=== PATIENT | female | born 1975 | race Caucasian/White ===

== ENCOUNTER 2016-10-02 00:30 | Emergency (ER) | payer OTHER ==
[2016-10-02 00:40] VITALS: BP 116/70
[2016-10-02] MEDS ORDERED: Sodium Chloride 0.9% 1000 ML 1,000 ML IV STA (00:48)
[2016-10-02] MEDS ORDERED: DECADRON 10MG INJ. IV ONE (00:49)
[2016-10-02] MEDS ORDERED: Unasyn 3GM / NaCl 100ML 100 ML IV ONE (00:49)
[2016-10-02] MEDS ORDERED: DECADRON 10MG INJ. ONE (00:59)
[2016-10-02] MEDS ORDERED: TORAdol 30 mg Injection ONE (00:59)
[2016-10-02] MEDS ORDERED: Sodium Chloride 0.9% 1000 ML 1,000 ML ONE (00:59)
[2016-10-02] MEDS ORDERED: Unasyn 3GM / NaCl 100ML 100 ML ONE (00:59)
[2016-10-02] MEDS ORDERED: TORAdol 30 mg Injection IV ONE (01:00)
--- NOTE | 2016-10-02 01:00 | ERPHSYRPT ---
- History of Present Illness Time Seen by Provider: 10/02/16 00:35 Source: patient Exam Limitations: clinical condition Patient Subjective Stated Complaint: states that she has had a sore throat for 3 days - intermittent cough: non-productive Triage Nursing Assessment: PAambulatory to treatment area - steady gait - moves all extremities with equal strength. alert/oriented - pleasant affect. skin flushed/hot/dry - no rash/injury. resps easy - loose cough noted. large swelling of tonsils with exudate Physician History: PATIENT COMPLAINS OF SORETHROAT OVER THE PAST 3 DAYS, ASSOCIATED WITH FEVER, DENIES CHILLS, DIFFICULTY BREATHING OR SWALLOWING, Timing/Duration: day(s) Cough Quality/Degree: dry cough Possible Cause: occasional episodes Modifying Factors: Improves With: other (THROAT PAIN) Associated Symptoms: sore throat International travel in last 2 weeks: No Allergies/Adverse Reactions: No Known Drug Allergies Allergy (Unverified 10/02/16 00:33) Home Medications: Levothyroxine Sodium 150 Mcg [Synthroid 150 Mcg] 150 mcg PO DAILY 10/02/16 [History] Lisinopril [Zestril] 10 mg PO DAILY 10/02/16 [History] Venlafaxine HCl [Effexor] 25 mg PO DAILY 10/02/16 [History] Hx Tetanus, Diphtheria Vaccination/Date Given: Yes Hx Influenza Vaccination/Date Given: Yes Hx Pneumococcal Vaccination/Date Given: No Immunizations Up to Date: Yes - Review of Systems Constitutional: No Fever, No Chills Eyes: No Symptoms Ears, Nose, & Throat: No Symptoms, Throat Pain, Painful Swallowing Respiratory: No Symptoms, No Cough, No Dyspnea Cardiac: No Symptoms, No Chest Pain, No Edema, No Syncope Abdominal/Gastrointestinal: No Symptoms, No Abdominal Pain, No Nausea, No Vomiting, No Diarrhea Genitourinary Symptoms: No Symptoms, No Dysuria Musculoskeletal: No Symptoms, No Back Pain, No Neck Pain Skin: No Symptoms, No Rash Neurological: No Symptoms, No Dizziness, No Focal Weakness, No Sensory Changes Psychological: No Symptoms Endocrine: No Symptoms All Other Systems: Reviewed and Negative - Past Medical History Pertinent Past Medical History: Yes Cardiac History: Hypertension Endocrine Medical History: Hypothyroidism Psycho-Social History: Depression - Past Surgical History Past Surgical History: Yes Gastrointestinal: Cholecystectomy Musculoskeletal: Orthopedic Surgery Female Surgical History: Hysterectomy, Dilation & Curettage, Section Other Surgical History: knee repair SNEHAL - Social History Smoking Status: Never smoker Exposure to second hand smoke: No Drug Use: none Patient Lives Alone: No - Female History Hx Last Menstrual Period: n/a - Nursing Vital Signs Nursing Vital Signs: Initial Vital Signs Temperature 99.4 F Temperature Source Oral Pulse Rate 92 Respiratory Rate 14 Blood Pressure [Left Arm] 116/70 Pain Intensity 7 - Physical Exam General Appearance: no apparent distress, alert Eye Exam: PERRL/EOMI, eyes nml inspection Ears, Nose, Throat Exam: normal ENT inspection, TMs normal, pharynx normal, moist mucous membranes, pharyngeal erythema, other (SWOLLEN LEFT SOFT PALATE WITH EXUDATES) Neck Exam: normal inspection, non-tender, supple, full range of motion Respiratory Exam: normal breath sounds, chest tenderness, lungs clear, No respiratory distress Cardiovascular Exam: regular rate/rhythm, normal heart sounds Gastrointestinal/Abdomen Exam: soft, No tenderness Back Exam: normal inspection, No CVA tenderness, No vertebral tenderness Extremity Exam: normal inspection, normal range of motion Neurologic Exam: alert, oriented x 3, cooperative, normal mood/affect, sensation nml, No motor deficits Skin Exam: normal color, warm, dry, No rash Lymphatic Exam: No adenopathy SpO2: 95 Oxygen Delivery: Room Air Ordered Tests: Active Orders 24 hr Category Date Time Status IV Insertion STAT Care 10/02/16 01:38 Active PO Fluid Challenge STAT Care 10/02/16 02:05 Active BLOOD CULTURE Stat Lab 10/02/16 01:25 Received CBC W DIFF Stat Lab 10/02/16 01:02 Completed Manual Differential NC Stat Lab 10/02/16 01:02 Completed Medication Summary Discontinued Medications Generic Name Dose Route Start Last Admin Trade Name Hafsa PRN Reason Stop Dose Admin Dexamethasone Sodium Phosphate 20 mg 10/02/16 00:49 10/02/16 01:06 Decadron 10mg Inj. IV 10/02/16 00:50 20 mg STAT ONE Administration Dexamethasone Sodium Phosphate Confirm 10/02/16 00:59 Decadron 10mg Inj. Administered 10/02/16 01:00 Dose 20 mg .ROUTE .STK-MED ONE Ampicillin Sodium/Sulbactam Sodium 100 mls @ 100 mls/hr 10/02/16 00:49 01:06 Unasyn 3gm / Nacl 100ml IV 10/02/16 01:48 100 mls/hr STAT ONE Administration Sodium Chloride 1,000 mls @ 999 mls/hr 10/02/16 00:48 10/02/16 01:06 Sodium Chloride 0.9% 1000 Ml IV 10/02/16 01:48 999 mls/hr .Q1H1M STA Administration Sodium Chloride Confirm 10/02/16 00:59 Sodium Chloride 0.9% 1000 Ml Administered 10/02/16 01:00 Dose 1,000 mls @ ud .ROUTE .STK-MED ONE Ampicillin Sodium/Sulbactam Sodium Confirm 10/02/16 00:59 Unasyn 3gm / Nacl 100ml Administered 10/02/16 01:00 Dose 100 mls @ ud .ROUTE .STK-MED ONE Ketorolac Tromethamine Confirm 10/02/16 00:59 Toradol 30 Mg Injection Administered 10/02/16 01:00 Dose 30 mg .ROUTE .STK-MED ONE Ketorolac Tromethamine 30 mg 10/02/16 01:00 10/02/16 01:06 Toradol 30 Mg Injection IV 10/02/16 01:01 30 mg STAT ONE Administration Lab/Rad Data: Laboratory Result Diagrams 10/02/16 01:02 Laboratory Results 10/02/16 Range/Units 01:02 WBC 14.1 H (4.0-10.5) K/mm3 RBC 4.29 (4.1-5.4) M/mm3 Hgb 12.0 (12.0-16.0) gm/dl Hct 38.4 (35-47) % MCV 89.5 (78-100) fl MCH 28.0 (26-32) pg MCHC 31.3 L (32-36) g/dl RDW 15.5 H (11.5-14.0) % Plt Count 363 (150-450) K/mm3 MPV 9.7 H (6-9.5) fl Segmented Neutrophils 80 H (36.0-66.0) % Lymphocytes (Manual) 10 L (24-44) % Monocytes (Manual) 10 (0.0-12.0) % Differential Comment NORMAL Platelet Estimate NORMAL (NORMAL) - Progress Progress Note: 10/02/16 00:59 PATIENT GIVEN NORMAL SALINE IV 1 LITER BOLUS, UNASYN 3MG, ZOFRAN 4MG, [id number] IV Counseled pt/family regarding: lab results, diagnosis, need for follow-up - Departure Time of Disposition: 02:11 Departure Disposition: Home Clinical Impression: Peritonsillar cellulitis Condition: Stable Critical Care Time: No Additional Instructions: FOLLOWUP WITH EAR, NOSE AND THROAT PHYSICIAN DR LOW FOR EVALUATION. ANTIBIOTIC AUGMENTIN 875MG TWICE DAILY FOR 10 DAYS. NORCO 10/325 EVERY 4 HOURS FOR PAIN NEEDED. DECADRON 4MG EVERY 8 HOURS FOR 4 DAYS. RETURN TO EMERGENCY FOR DIFFICULTY BREATHING OR SWALLOWING. Prescriptions: Hydrocodone/APAP 10/325 mg [Pharr 10/325 MG Tablet] 1 tab PO Q4H PRN PRN # 20 tablet PRN Reason: Pain Amox Tr/Potass Clav. 875 mg [Augmentin 875-125 Tablet] 875 mg PO BID #20 tablet Dexamethasone 4 mg [Decadron 4 MG] 4 mg PO TID #12 tablet
[2016-10-02 01:11] LABS: Mean Cell Volume 89.5 fl (78-100); Mean Platelet Volume 9.7 fl (6-9.5); Platelet Count 363 K/mm3 (150-450); Red Blood Count 4.29 M/mm3 (4.1-5.4); Red Cell Distribution Width 15.5 % (11.5-14.0); White Blood Count 14.1 K/mm3 (4.0-10.5)
[2016-10-02 01:40] VITALS: PULSE 92
[2016-10-02 01:58] LABS: Platelet Estimate NORMAL (NORMAL); Total Cells Counted 100
[2016-10-02 02:12] VITALS: O2SAT 95
[2016-10-02] MEDS ORDERED: Norco 10/325 MG Tablet PO ONE (02:14)
[2016-10-02] MEDS ORDERED: Norco 10/325 MG Tablet ONE (02:17)
== END 2016-10-02 02:22 | disposition home or self-care (01) ==
LOC: ED 00:30
DX: J36 Peritonsillar abscess (principal)
CPT/HCPCS: 36000; 36415; 85025; 87040; 96360; 96365; 96374; 96375; 99284; J0295; J1100; J1885; A9270-GY